=== PATIENT | female | born 1950 | race Caucasian/White ===

== ENCOUNTER → 2016-08-29 | Outpatient (CLI) | payer OTHER, MEDICAID | LOC: FIMAGING 11:03 | PROVIDERS: ATTEND Physician Assistant | DX: M17.0 Bilateral primary osteoarthritis of knee (principal); M25.561 Pain in right knee; M25.562 Pain in left knee ==

== ENCOUNTER 2017-01-25 05:58 | Inpatient (IN) | payer OTHER, MEDICAID ==
[2017-01-25] MEDS ORDERED: TRANEXAMIC ACID 3,000 MG in NS 50 ML IRR ONE (06:00)
[2017-01-25] MEDS ORDERED: ROPIVACAINE 0.2% 80 MG, EPINEPHrine 0.2 MG in BAG 0 ML IU ONE (06:00)
[2017-01-25] MEDS ORDERED: BUPIVACAINE 0.5% 30 ML SDV ONE (06:52)
[2017-01-25] MEDS ORDERED: TRANEXAMIC ACID 3,000 MG/50 ML BAG IRR ONE (06:56)
[2017-01-25] MEDS ORDERED: VANCOMYCIN 1 GM VIAL ONE ×2 (06:57)
--- NOTE | 2017-01-25 07:00 | PDHPUP ---
History & Physical Update H&P update statement: This history and physical update is based on an assessment of the patient which was completed after admission or registration (within 24 hours), but prior to the surgery/procedure. H&P update: H&P reviewed & patient examined, no change in patient's condition since H&P completed
--- NOTE | 2017-01-25 07:04 | PDANEPAE ---
ANE History of Present Illness h/o right knee OA for TKA today ANE Past Medical History - Cardiovascular History Hx Hypertension: No Hx Arrhythmias: No Hx Chest Pain: No Hx Coronary Artery / Peripheral Vascular Disease: No Hx CHF / Valvular Disease: No Hx Palpitations: No Cardiovascular History Comment: hx of pericarditis - Pulmonary History Hx COPD: No Hx Asthma/Reactive Airway Disease: No Hx Recent Upper Respiratory Infection: No Hx Oxygen in Use at Home: No Hx Sleep Apnea: Yes Sleep Apnea Screening Result - Last Documented: Positive Pulmonary History Comment: PATRICK uses CPAP -tolerate well. Breathing issues as a child due to allergies. - Neurologic History Hx Cerebrovascular Accident: No Hx Seizures: No Hx Dementia: No - Endocrine History Hx Diabetes: No Hypothyroid: Yes Obesity: yes Endocrine History Comment: hypothyroid - Renal History Hx Renal Disorders: No - Liver History Hx Hepatic Disorders: No - Neurological & Psychiatric Hx Hx Neurological and Psychiatric Disorders: Yes Neurological / Psychiatric History Comment: no current back/spine pain. - Cancer History Hx Cancer: No - Congenital Disorder History Hx Congenital Disorders: No - GI History Hx Gastrointestinal Disorders: Yes Gastrointestinal History Comment: Gluten - intolerant. - Other Health History Other Health History: OA bilat knees, R knee more sever, OA jaws. Immune system : multiple allergies to peanuts, corn, Gluten, preservatives. - Chronic Pain History Chronic Pain: Yes (R knee) - Surgical History Prior Surgeries: hysterectomy 1998. laparoscopy 1979. T.L. w/laparoscopy 1971 ANE Review of Systems Review of Systems: - Exercise capacity METS (RN): 3 METS ANE Patient History - Allergies Allergies/Adverse Reactions: aspirin Allergy (Verified 12/18/16 10:33) Hives latex Allergy (Verified 09/11/13 10:07) peanut Allergy (Verified 09/11/13 10:07) Penicillins Allergy (Verified 09/11/13 10:07) - Home Medications Home medications: home medication list seen and reviewed Home Medications: Thyroid,Pork [Dental Amalgam Processor Thyroid 120] 120 mg PO DAILY 09/11/13 [Last Taken Unknown] Cholecalciferol Vit D3 [Vitamin D3 (*)] 5,000 units PO DAILY 12/18/16 [Last Taken Unknown] Herbals/Supplements -Info Only 1 each PO DAILY 12/18/16 [Last Taken Unknown] Vitamin B Complex [B Complex] 1 each PO DAILY 12/18/16 [Last Taken Unknown] Acetaminophen Extra Strength 12/25/16 [Last Taken Unknown] - NPO status NPO Status: no food or drink >8 hours - Anes Hx Anes Hx: post operative nausea - Smoking Hx Smoking Status: Never smoked ANE Labs/Vital Signs - Vital Signs Height: 167.64 cm Weight: 103.419 kg ANE Physical Exam - Airway Neck exam: FROM Mallampati Score: Class 3 Mouth exam: small mouth opening - Pulmonary Pulmonary: no respiratory distress - Cardiovascular Cardiovascular: regular rate and rhythym - ASA Status ASA Status: III ANE Anesthesia Plan Anesthesia Plan: spinal Regional Anesthesia: single shot NB, adductor canal FNB
[2017-01-25] MEDS ORDERED: MIDAZOLAM 2 MG/2 ML VIAL IVP ONE (07:06)
[2017-01-25] MEDS ORDERED: LIDOCAINE 1% 2 ML INJ ONE (07:10)
[2017-01-25] MEDS ORDERED: PROPOFOL 200 MG/20 ML VIAL ONE ×3 (07:13→08:43)
[2017-01-25] MEDS ORDERED: LIDOCAINE 1% 2 ML INJ ID PRN (07:17)
[2017-01-25] MEDS ORDERED: LR 1,000 ML IV ONE (07:17)
[2017-01-25] MEDS ORDERED: LIDOCAINE 2% 5 ML SDV ONE (07:18)
[2017-01-25] MEDS ORDERED: fentaNYL 100 MCG/2 ML INJ ONE ×2 (08:15→10:15)
[2017-01-25] MEDS ORDERED: ceFAZolin 1 GM VIAL ONE ×2 (08:28)
[2017-01-25] MEDS ORDERED: LABETALOL HCL 5 MG/ML 20 ML MDV ONE (08:29)
[2017-01-25] MEDS ORDERED: LABETALOL HCL 50 MG/10 ML SYR IVP PRN (08:45)
[2017-01-25] MEDS ORDERED: NALOXONE HCL 0.4 MG/ML INJ IVP PRN ×2 (08:45→10:44)
[2017-01-25] MEDS ORDERED: ONDANSETRON 4 MG/2 ML VIAL IVP PRN ×2 (08:45→09:17)
[2017-01-25] MEDS ORDERED: ACETAMINOPHEN 500 MG TAB PO PRN ×2 (08:45→10:44)
[2017-01-25] MEDS ORDERED: ALBUTEROL 3 ML DEYVIAL IH PRN (08:45)
[2017-01-25] MEDS ORDERED: LR 500 ML IV PRN (08:45)
[2017-01-25] MEDS ORDERED: diphenhydrAMINE 25 MG CAP PO PRN (09:17)
[2017-01-25] MEDS ORDERED: PROMETHAZINE HCL 25 MG SUPPR PR PRN (09:17)
[2017-01-25] MEDS ORDERED: METOCLOPRAMIDE 10 MG/2 ML VIAL IVP PRN (09:17)
[2017-01-25] MEDS ORDERED: DIPHENOXYLATE/ATROPINE LOMOTIL 1 TAB PO PRN (09:17)
[2017-01-25] MEDS ORDERED: BISACODYL 10 MG SUPP PR PRN (09:17)
[2017-01-25] MEDS ORDERED: LACTULOSE 20 GM/30 ML UDCUP PO PRN (09:17)
[2017-01-25] MEDS ORDERED: ONDANSETRON DISINTEGRATING 4 MG TAB PO PRN (09:17)
[2017-01-25] MEDS ORDERED: TEMAZEPAM 15 MG CAP PO PRN (09:17)
[2017-01-25] MEDS ORDERED: MAGNESIUM HYDROXIDE 30 ML UDCUP PO PRN (09:17)
[2017-01-25] MEDS ORDERED: POLYETHYLENE GLYCOL 3350 17 GM PKT PO PRN (09:17)
--- NOTE | 2017-01-25 09:17 | POSTOPPROG ---
Post Op Note Date of Operation: 01/25/17 Surgeon: Kelly Chery Sewer: carlie smith Anesthesiologist: jose spear Anesthesia: IV Sedation, Local (Specify) (adductor canal), Spinal Pre-op Diagnosis: R knee OA Post-op Diagnosis: R knee OA Indication: failed conservative therapies Procedure: R TKA Inf/Abcess present in the surg proc area at time of surgery?: No EBL: Minimal
[2017-01-25] MEDS ORDERED: LR 1,000 ML IV SCH (09:30)
--- NOTE | 2017-01-25 09:33 | POSTANESTH ---
Post Anesthetic Evaluation Cardiovascular Status: Normal, Stable Respiratory Status: Normal, Stable Level of Consciousness/Mental Status: Can Participate in Eval Pain Control: Adequate, Prn Tx Ordered Nausea/Vomiting Control: Adequate, Prn Tx Ordered Complications Possibly Related to Anesthesia: None Noted
[2017-01-25] MEDS ORDERED: ONDANSETRON 4 MG/2 ML VIAL ONE (09:48)
[2017-01-25] MEDS: fentaNYL 100 MCG/2 ML INJ IVP PRN ×2 (10:15→10:33)
[2017-01-25] MEDS ORDERED: ceFAZolin 2 GM/DEXTROSE 100 ML IV ONE (10:44)
[2017-01-25] MEDS ORDERED: Herbals/Supplements -Info Only PO SCH (10:44)
[2017-01-25] MEDS ORDERED: FAMOTIDINE 20 MG TAB PO ONE (10:44)
[2017-01-25] MEDS ORDERED: DEXAMETHASONE 4 MG/ML VIAL IVP ONE (10:44)
[2017-01-25] MEDS ORDERED: ACETAMINOPHEN 325 MG TAB PO ONE (10:44)
[2017-01-25] MEDS ORDERED: HYDROmorphONE/DILAUDID 1 MG/ML INJ ONE ×2 (10:51→11:14)
[2017-01-25] MEDS: HYDROmorphONE/DILAUDID 1 MG/ML INJ IVP PRN ×4 (10:54→11:35)
[2017-01-25] MEDS ORDERED: PROMETHAZINE HCL 25 MG/ML INJ ONE (11:32)
[2017-01-25] MEDS: PROMETHAZINE HCL 25 MG/ML INJ IVP PRN ×2 (11:35→12:24)
[2017-01-25] MEDS ORDERED: THYROID 60 MG TAB PO SCH (13:45)
[2017-01-25] MEDS: CHOLECALCIFEROL VIT D3 1,000 UNITS TAB PO SCH (13:48)
[2017-01-25] MEDS: ACETAMINOPHEN 325 MG TAB PO SCH ×2 (13:48→17:53)
[2017-01-25] MEDS: VITAMIN B COMPLEX 1 EA CAP/TAB PO SCH (14:29)
[2017-01-25] MEDS: ceFAZolin 2 GM/DEXTROSE 100 ML IV SCH ×2 (15:26→21:38)
[2017-01-25] MEDS: oxyCODONE IR 5 MG TAB PO PRN ×3 (15:26→21:39)
[2017-01-25] MEDS ORDERED: WARFARIN SODIUM 5 MG TAB PO SCH (16:00)
[2017-01-25] MEDS: CYCLOBENZAPRINE 10 MG TAB PO PRN (17:54)
[2017-01-25] MEDS: FAMOTIDINE 20 MG TAB PO SCH (21:39)
[2017-01-25] MEDS: SENNOSIDES/DOCUSATE SODIUM TAB PO SCH (21:41)
[2017-01-26] MEDS: oxyCODONE IR 5 MG TAB PO PRN ×5 (00:21→14:49)
[2017-01-26] MEDS: ACETAMINOPHEN 325 MG TAB PO SCH ×3 (00:21→11:19)
[2017-01-26] MEDS: CYCLOBENZAPRINE 10 MG TAB PO PRN ×2 (04:16→11:19)
[2017-01-26 05:31] LABS: INR 1.1 (0.83-1.16); PROTIME(PATIENT) 14.1 SEC (12.0-15.0)
[2017-01-26] MEDS: VITAMIN B COMPLEX 1 EA CAP/TAB PO SCH (08:26)
[2017-01-26] MEDS: FAMOTIDINE 20 MG TAB PO SCH (08:26)
[2017-01-26] MEDS: SENNOSIDES/DOCUSATE SODIUM TAB PO SCH (08:26)
[2017-01-26] MEDS: CHOLECALCIFEROL VIT D3 1,000 UNITS TAB PO SCH (08:27)
[2017-01-26] MEDS ORDERED: THYROID 60 MG TAB PO SCH (09:00)
[2017-01-26] MEDS ORDERED: ENOXAPARIN 40 MG/0.4 ML SYR SC SCH (09:00)
[2017-01-26] MEDS ORDERED: [UNRECOGNIZED DRUG - OTHER] PO SCH (09:00)
[2017-01-26 11:48] VITALS: BP 156/73; PULSE 67; RESP 14; TEMP 98.8; O2SAT 97
--- NOTE | 2017-01-26 12:16 | SOAPPROG ---
SOAP Progress Note Assessment/Plan: Assessment: Patient is doing well POD 1 s/p R TKA Pain management: pain is well controlled on oral pain meds. VTE ppx: recommend lovenox x 4 days followed by coumadin daily for 3 weeks, cont TRISTAN and SCDs Anemia: level is expected initially postop. Asymptomatic. Continue to monitor D/c planning: d/c to home today pending release from PT Plan: 01/26/17 12:15 Objective: Vital Signs Temp Pulse Resp BP Pulse Ox 37.1 C 67 14 156/73 H 97 01/26/17 11:47 01/26/17 11:47 01/26/17 11:47 01/26/17 11:47 01/26/17 11:47 Laboratory Results 01/26/17 05:15 01/25/17 01/26/17 01/27/17 05:59 05:59 05:59 Intake Total 2330 Output Total 880 Balance 1450 PT 14.1 SEC (12.0-15.0) 01/26/17 05:15 INR 1.10 (0.83-1.16) 01/26/17 05:15 ICD10 Worksheet Patient Problems: Problems Problem Status Onset Osteoarthritis of right knee Acute - ICD10 Problem Qualifiers (1) Osteoarthritis of right knee Qualifiers: Osteoarthritis type: primary Qualified Code(s): M17.11 - Unilateral primary osteoarthritis, right knee
--- NOTE | 2017-01-27 17:06 | ASDISCHSUM ---
Discharge Information Plan Status:Home with No Needs Medically Cleared to Leave:01/26/2017 Discharge Date:01/26/2017 02:52 PM CM D/C Disposition:Home, Routine, Self-Care ADT D/C Disposition:Home, Routine, Self-Care Projected Discharge Date:01/26/2017 12:00 AM Transportation at D/C:Family Discharge Delay Reason: Follow-Up Date:01/26/2017 12:00 AM Discharge Slot: Final Diagnosis:R TKA Placement Information Patient Contact Information Contact Name:ONOFRE Relationship: Address:[address] Work Phone: City:[place] Alternate Phone: State/Zip Code:[place] [address] Email: Financial Information Financial Class: Primary Plan Desc:MEDICARE INPATIENT Primary Plan Number:[id number] Secondary Plan Desc:MEDICA[place] Secondary Plan Number:[id number] Assessment Information Intervention Information
--- NOTE | 2017-01-27 17:08 | ASMTCMCOM ---
CM Note CM Note Notes: Reviewed chart, spoke w/ Akua RN. Pt to discharge home independently w/ family support and no identified needs. PT/OT rec home vs home w/ 24 hr supervision and use of a front wheeled walker. Pt to f/u as directed. CM avail for any further issues or concerns. Date Signed: 01/26/2017 05:02 PM Electronically Signed By:Nataliia Gil
--- NOTE | 2017-01-28 09:29 | GOP ---
[f rep st] OPERATIVE REPORT DATE OF OPERATION: 01/25/2017 SURGEON: Rafi Chery MD STACKER AND SORTER OPERATOR: BG Carrera. ANESTHESIA: Spinal. PREOPERATIVE DIAGNOSIS: Right knee osteoarthritis. POSTOPERATIVE DIAGNOSIS: Right knee osteoarthritis. PROCEDURE PERFORMED: Right total knee arthroplasty. FINDINGS/PATHOLOGY: Severe tricompartmental osteoarthritis. ESTIMATED BLOOD LOSS: 30 cc. INDICATIONS: This is a 66-year-old female with severe and progressive pain and deformity of the right knee unresponsive to conservative care. Risks and benefits of the surgical intervention were explained in detail. DESCRIPTION OF PROCEDURE: The patient was brought to the operative room and placed on the table in the supine position. Spinal anesthesia was induced without difficulty. A pneumatic tourniquet was applied about the right proximal thigh, and the leg was prepped and draped in a sterile fashion. The leg march was applied. After exsanguination by elevation the tourniquet was inflated to 300 mm of mercury. Incision was made anterior medial from the tibial tuberosity to a point 2 cm proximal to the superior pole of the patella. Medial parapatellar arthrotomy was carried out from the superior pole of the patella and posteriorly in line with the fibers of the Type II VMO. The medial collateral ligament was elevated and the infrapatellar fat pad was resected. The patella was everted and the articular surface was excised. A 32 mm patellar button was placed. The distal femoral guide hole was drilled and the 6- degree alignment mark was placed. An 8 mm distal femoral cut was made without difficulty. Attention was turned to the tibia and a standard 9 mm cut based on the lateral tibial condyle was performed. The tibial articular surface was excised without difficulty. Attention was turned back to the femur and a size 3 Triathlon femoral cutting block was positioned. Anterior, posterior, and chamfer cuts were made, followed by the intercondylar box cut. The knee was extended and the remnants of the medial and lateral meniscus were excised. The posterior capsule was injected with ropivacaine, epinephrine and Toradol. A size 4 MIS mini-keel tibial tray was positioned. Trial reduction was then carried out. There was excellent range of motion, alignment, and stability using the 13 mm polyethylene. All trials were then removed. The joint was thoroughly irrigated and carefully dried. Two packages of cement and 2 grams of vancomycin were mixed in the vacuum mixer and placed on the fixation surfaces of all surfaces of the components. The components were implanted and all excess cement was thoroughly removed. The permanent 13 mm polyethylene X3 was placed without difficulty. The tourniquet was deflated and all bleeders were coagulated. The wound was thoroughly irrigated and closed using interrupted sutures of 2-0 Vicryl for the joint capsule. The subcu was closed with 3-0 Vicryl and the skin with 4-0 Monocryl. Dermabond and Steri-Strips were applied followed by a compressive dressing. The patient was then moved from the operating room to the recovery room in good condition, having tolerated the procedure well. /[id number]/MODL MTDD
== END 2017-01-26 14:52 | disposition home or self-care (01) | DRG 470 ==
LOC: F3N 05:58
PROVIDERS: ADMIT Orthopaedic Surgery; ATTEND Orthopaedic Surgery
PROC: 0SRC0J9 Replacement of Right Knee Joint with Synthetic Substitute, Cemented, Open Approach (ICD-10-PCS; principal; 2017-01-25 09:15)
DX: M17.11 Unilateral primary osteoarthritis, right knee (principal); G47.33 Obstructive sleep apnea (adult) (pediatric); E03.9 Hypothyroidism, unspecified; Z79.01 Long term (current) use of anticoagulants
CPT/HCPCS: 97116-GP; 97161-GP; 97165-GO; C1713; G8978-GP-CK; G8979-GP-CI; G8980-GP-CI; G8987-GO-CJ; G8988-GO-CI; J0171; J0690; J1170; J1650; J2250; J2405; J2550; J2704; J2795; J3010; J3370; J3490

== ENCOUNTER 2018-08-11 08:23 | Emergency (ER) | payer MEDICAID, OTHER ==
[2018-08-11] MEDS ORDERED: NS 1,000 ML IV ONE (08:46)
--- NOTE | 2018-08-11 08:50 | EDPHY ---
H & P Stated Complaint: umbilical swelling and pain since saturday Time Seen by Provider: 08/11/18 08:41 HPI/ROS: CHIEF COMPLAINT: Umbilical pain HISTORY OF PRESENT ILLNESS: The patient is a 67-year-old female with a history of laparoscopic tubal ligation 40 years ago followed by laparoscopic exploratory surgery for pelvic pain as well as hysterectomy several years later. Noticed a lump in some pain just below her umbilicus on Saturday. The pain is continued throughout the weekend. She has felt nauseous and has not felt like eating. She has continued to have bowel movements. No fever. No history of hernias. Severity: Moderate Modifying factors: Worsened by palpation REVIEW OF SYSTEMS: Constitutional: denies: chills, fever, recent illness, recent injury EENTM: denies: blurred vision, double vision, nose congestion Respiratory: denies: cough, shortness of breath Cardiac: denies: chest pain, irregular heart rate, lightheadedness, palpitations Gastrointestinal/Abdominal: denies: abdominal pain, diarrhea, nausea, vomiting, blood streaked stools Genitourinary: denies: dysuria, frequency, hematuria, pain Musculoskeletal: denies: joint pain, muscle pain Skin: denies: lesions, rash, jaundice, bruising Neurological: denies: headache, numbness, paresthesia, tingling, dizziness, weakness Hematologic/Lymphatic: denies: blood clots, easy bleeding, easy bruising Immunologic/allergic: denies: HIV/AIDS, transplant 10 systems reviewed and negative except as noted EXAM: GENERAL: Well-appearing, well-nourished and in no acute distress. HEAD: Atraumatic, normocephalic. EYES: Pupils equal round and reactive to light, extraocular movements intact, sclera anicteric, conjunctiva are normal. ENT: TMs normal, nares patent, oropharynx clear without exudates. Moist mucous membranes. NECK: Normal range of motion, supple without lymphadenopathy or JVD. LUNGS: Breath sounds clear to auscultation bilaterally and equal. No wheezes rales or rhonchi. HEART: Regular rate and rhythm without murmurs, rubs or gallops. ABDOMEN: Palpable mass just below umbilicus, tender. Unable to reduce but the bedside., normoactive bowel sounds. No guarding, no rebound. BACK: No CVA tenderness, no spinal tenderness, step-offs or deformities EXTREMITIES: Normal range of motion, no pitting or edema. No clubbing or cyanosis. NEUROLOGICAL: Cranial nerves II through XII grossly intact. Normal speech, normal gait. 5/5 strength, normal movement in all extremities, normal sensation , normal reflexes PSYCH: Normal mood, normal affect. SKIN: Warm, dry, normal turgor, no visible rashes or lesions. Source: Patient Exam Limitations: No limitations - Personal History Current Tetanus Diphtheria and Acellular Pertussis (TDAP): Yes - Medical/Surgical History Hx Asthma: Yes Hx Chronic Respiratory Disease: No Hx Diabetes: No Hx Cardiac Disease: No Hx Renal Disease: No Hx Cirrhosis: No Hx Alcoholism: No Hx HIV/AIDS: No Hx Splenectomy or Spleen Trauma: No Other PMH: Shingles. hysterectomy knee surg - Family History Significant Family History: No pertinent family hx - Social History Smoking Status: Never smoked Alcohol Use: None Constitutional: Initial Vital Signs Temperature (C) 36.7 C 08/11/18 08:28 Heart Rate 84 08/11/18 08:28 Respiratory Rate 18 08/11/18 08:28 Blood Pressure 190/94 H 08/11/18 08:28 O2 Sat (%) 95 08/11/18 08:28 O2 Delivery Mode Room Air Allergies/Adverse Reactions: aspirin Allergy (Verified 08/11/18 08:26) Hives latex Allergy (Verified 08/11/18 08:26) peanut Allergy (Verified 08/11/18 08:26) Penicillins Allergy (Verified 08/11/18 08:26) Home Medications: Medication Instructions Recorded Thyroid,Pork [Infrastructure Project Manager Thyroid] 120 mg PO DAILY 09/11/13 Cephalexin [Keflex] 500 mg PO TID #21 cap 08/11/18 Medical Decision Making - Diagnostics Imaging Results: Imaging Impressions Abdomen CT 08/11/18 08:47 Impression: 1. Fat-containing umbilical hernia measuring 5.4 cm with internal fat stranding and subjacent omental stranding, likely representing omental infarction or inflammation. 2. Left lower lobe nodule measuring 2.2 x 1.5 cm, new since 2007. This may represent rounded atelectasis. However, would consider PET/CT scan to exclude hypermetabolic mass. 3. Fatty liver. Findings and recommendations discussed with KACY MCLAUGHLIN at 1012 hour, 2018. Imaging: Discussed imaging studies w/ call center coordinator Radiologist ED Course/Re-evaluation: Patient is reassured by the CT findings. She still has a tender lump that I am unable to reduce. Will consult surgery. She also appears to have a mild UTI. Will start antibiotics. 10:45 a.m. I spoke with Dr. Walker. He states that he will admit and repair the hernia if it is painful and bothering the patient. I spoke with the patient who still does have some discomfort but she is very scared of having surgery and declines repair at this time. She states that she can tolerate the symptoms.. She will follow up with Dr. Walker as an outpatient. Dr. Walker agrees with this plan. We discussed indications for returning. We did discuss her urinalysis. She states that she has had some unusual smelling urine and would like to take the antibiotics. Differential Diagnosis: Partial list of the Differential diagnosis considered include but were not limited to; omental hernia, umbilical hernia, surgical hernia and although unlikely based on the history and physical exam, I also considered obstruction, ischemia, volvulus, incarceration. - Data Points Laboratory Results: Laboratory Results 08/11/18 09:00 08/11/18 09:00 08/11/18 08/11/18 08/11/18 09:50 09:05 09:00 WBC RBC Hgb POC Hgb 16.3 gm/dL gm/dL (12.6-16.3) Hct POC Hct 48 % H % (38-47) MCV MCH MCHC RDW Plt Count MPV Neut % (Auto) Lymph % (Auto) [place] % (Auto) Eos % (Auto) Baso % (Auto) Nucleat RBC Rel Count Absolute Neuts (auto) Absolute Lymphs (auto) Absolute Monos (auto) Absolute Eos (auto) Absolute Basos (auto) Absolute Nucleated RBC Immature Gran % Immature Gran # POC Sodium 143 mEq/L mEq/L (135-145) Sodium 140 mEq/L mEq/L (135-145) POC Potassium 3.9 mEq/L mEq/L (3.3-5.0) Potassium 4.3 mEq/L mEq/L (3.5-5.2) POC Chloride 107 mEq/L mEq/L (97-110) Chloride 108 mEq/L mEq/L (97-110) Carbon Dioxide 21 mEq/l L mEq/l (22-31) POC Total CO2 21 mEq/L L mEq/L (22-31) Anion Gap 11 mEq/L mEq/L (6-14) POC BUN 13 mg/dL mg/dL (7-23) BUN 14 mg/dL mg/dL (7-23) Creatinine 1.0 mg/dL mg/dL (0.6-1.0) POC Creatinine 0.9 mg/dL mg/dL (0.6-1.0) Estimated GFR 55 Glucose 111 mg/dL H mg/dL (70-100) POC Glucose 116 mg/dL H mg/dL (70-100) Calcium 9.7 mg/dL mg/dL (8.5-10.4) Total Bilirubin 1.0 mg/dL mg/dL (0.1-1.4) Conjugated Bilirubin 0.4 mg/dL mg/dL (0.0-0.5) Unconjugated Bilirubin 0.6 mg/dL mg/dL (0.0-1.1) AST 47 IU/L H IU/L (14-46) ALT 49 IU/L IU/L (9-52) Alkaline Phosphatase 69 IU/L IU/L (38-126) Total Protein 8.0 g/dL g/dL (6.3-8.2) Albumin 4.8 g/dL g/dL (3.5-5.0) Lipase 102 IU/L IU/L (23-300) Urine Color YELLOW Urine Appearance CLEAR Urine pH 7.0 (5.0-7.5) Ur Specific [place] 1.023 (1.002-1.030) Urine Protein NEGATIVE (NEGATIVE) Urine Ketones NEGATIVE (NEGATIVE) Urine Blood NEGATIVE (NEGATIVE) Urine Nitrate POSITIVE H (NEGATIVE) Urine Bilirubin NEGATIVE (NEGATIVE) Urine Urobilinogen NEGATIVE EU EU (0.2-1.0) Ur Leukocyte Esterase TRACE H (NEGATIVE) Urine RBC 1-3 /hpf /hpf (0-3) Urine WBC 5-10 /hpf H /hpf (0-3) Ur Epithelial Cells TRACE /lpf /lpf (NONE-1+) Urine Bacteria 1+ /hpf H /hpf (NONE SEEN) Urine Mucus TRACE /lpf /lpf (NONE-1+) Urine Glucose NEGATIVE (NEGATIVE) 08/11/18 09:00 WBC 8.19 10^3/uL 10^3/uL (3.80-9.50) RBC 4.98 10^6/uL 10^6/uL (4.18-5.33) Hgb 15.8 g/dL g/dL (12.6-16.3) POC Hgb Hct 46.8 % % (38.0-47.0) POC Hct MCV 94.0 fL fL (81.5-99.8) MCH 31.7 pg pg (27.9-34.1) MCHC 33.8 g/dL g/dL (32.4-36.7) RDW 12.2 % % (11.5-15.2) Plt Count 282 10^3/uL 10^3/uL (150-400) MPV 9.7 fL fL (8.7-11.7) Neut % (Auto) 60.6 % % (39.3-74.2) Lymph % (Auto) 26.7 % % (15.0-45.0) [place] % (Auto) 9.5 % % (4.5-13.0) Eos % (Auto) 1.8 % % (0.6-7.6) Baso % (Auto) 1.2 % % (0.3-1.7) Nucleat RBC Rel Count 0.0 % % (0.0-0.2) Absolute Neuts (auto) 4.95 10^3/uL 10^3/uL (1.70-6.50) Absolute Lymphs (auto) 2.19 10^3/uL 10^3/uL (1.00-3.00) Absolute Monos (auto) 0.78 10^3/uL 10^3/uL (0.30-0.80) Absolute Eos (auto) 0.15 10^3/uL 10^3/uL (0.03-0.40) Absolute Basos (auto) 0.10 10^3/uL 10^3/uL (0.02-0.10) Absolute Nucleated RBC 0.00 10^3/uL 10^3/uL (0-0.01) Immature Gran % 0.2 % % (0.0-1.1) Immature Gran # 0.02 10^3/uL 10^3/uL (0.00-0.10) POC Sodium Sodium POC Potassium Potassium POC Chloride Chloride Carbon Dioxide POC Total CO2 Anion Gap POC BUN BUN Creatinine POC Creatinine Estimated GFR Glucose POC Glucose Calcium Total Bilirubin Conjugated Bilirubin Unconjugated Bilirubin AST ALT Alkaline Phosphatase Total Protein Albumin Lipase Urine Color Urine Appearance Urine pH Ur Specific [place] Urine Protein Urine Ketones Urine Blood Urine Nitrate Urine Bilirubin Urine Urobilinogen Ur Leukocyte Esterase Urine RBC Urine WBC Ur Epithelial Cells Urine Bacteria Urine Mucus Urine Glucose Medications Given: Discontinued Medications Sodium Chloride (Ns) 1,000 mls @ 0 mls/hr IV EDNOW ONE; Wide Open PRN Reason: Protocol Stop: 08/11/18 08:47 Last Admin: 08/11/18 09:04 Dose: 1,000 mls Ceftriaxone Sodium/Dextrose (Rocephin 1 Gm (Premix)) 50 mls @ 100 mls/hr IV EDNOW ONE PRN Reason: Protocol Stop: 08/11/18 11:04 Last Admin: 08/11/18 10:46 Dose: 50 mls Point of Care Test Results: Chemistry 08/11/18 09:05 POC Sodium 143 mEq/L mEq/L (135-145) POC Potassium 3.9 mEq/L mEq/L (3.3-5.0) POC Chloride 107 mEq/L mEq/L (97-110) POC Total CO2 21 mEq/L L mEq/L (22-31) POC BUN 13 mg/dL mg/dL (7-23) POC Creatinine 0.9 mg/dL mg/dL (0.6-1.0) POC Glucose 116 mg/dL H mg/dL (70-100) ISTAT H&H 08/11/18 09:05 POC Hgb 16.3 gm/dL gm/dL (12.6-16.3) POC Hct 48 % H % (38-47) Departure - Departure Disposition: Home, Routine, Self-Care Clinical Impression: Herniation through surgical site Urinary tract infection Qualifiers: Urinary tract infection type: acute cystitis Hematuria presence: without hematuria Qualified Code(s): N30.00 - Acute cystitis without hematuria Condition: Fair Instructions: Urinary Tract Infection in Women (ED), Ventral Hernia Repair (DC) Referrals: Karin Warner PA [Primary Care Provider] - As per Instructions Mike Walker MD [Medical Doctor] - 2-3 days, call for appt. Prescriptions: Cephalexin [Keflex] 500 mg PO TID #21 cap
[2018-08-11 09:10] LABS: PLATELET COUNT 282 10^3/uL (150-400)
[2018-08-11] MEDS ORDERED: IOPAMIDOL (ISOVUE-300) 100 ML BTL ONE (09:15)
[2018-08-11 11:02] VITALS: BP 149/78
== END 2018-08-11 11:06 | disposition home or self-care (01) ==
DX: K43.2 Incisional hernia without obstruction or gangrene (principal); N30.00 Acute cystitis without hematuria; E03.9 Hypothyroidism, unspecified; E86.9 Volume depletion, unspecified
CPT/HCPCS: 74177; 96361; 96365; 99283; J0696; Q9967; 82435-PO; 82565-PO; 82947-PO; 84132-PO; 84295-PO; 84520-PO; 85014-ER

== ENCOUNTER 2018-09-12 09:01 | Day surgery (SDC) | payer OTHER ==
[2018-09-12] MEDS ORDERED: ceFAZolin 2 GM/DEXTROSE 100 ML IV ONE (09:13)
[2018-09-12] MEDS ORDERED: BUPIVACAINE 0.5% 30 ML SDV ONE (09:14)
[2018-09-12] MEDS ORDERED: LR 1,000 ML IV ONE (09:41)
[2018-09-12] MEDS ORDERED: MIDAZOLAM 2 MG/2 ML VIAL IVP ONE (09:58)
[2018-09-12] MEDS ORDERED: MIDAZOLAM 2 MG/2 ML VIAL ONE (09:58)
[2018-09-12] MEDS ORDERED: fentaNYL 100 MCG/2 ML INJ ONE ×3 (10:00→11:49)
[2018-09-12] MEDS ORDERED: PROPOFOL 200 MG/20 ML VIAL ONE ×2 (10:01)
[2018-09-12] MEDS ORDERED: ROCURONIUM 50 MG/5 ML VIAL ONE (10:03)
[2018-09-12] MEDS ORDERED: LIDOCAINE 2% 2 ML INJ ONE ×2 (10:04)
[2018-09-12] MEDS ORDERED: DEXAMETHASONE 4 MG/ML VIAL ONE (10:18)
[2018-09-12] MEDS ORDERED: KETOROLAC 30 MG/1 ML SDV ONE (10:18)
[2018-09-12] MEDS ORDERED: ONDANSETRON 4 MG/2 ML VIAL ONE ×2 (10:18→13:28)
[2018-09-12] MEDS ORDERED: SUGAMMADEX SODIUM 200 MG/2 ML VIAL IVP ONE (10:18)
[2018-09-12] MEDS ORDERED: PROMETHAZINE HCL 25 MG/ML INJ IVP PRN (10:30)
[2018-09-12] MEDS ORDERED: ALBUTEROL 3 ML DEYVIAL IH PRN (10:30)
[2018-09-12] MEDS ORDERED: HYDROCODONE/APAP 5/325 TAB PO PRN (10:30)
[2018-09-12] MEDS ORDERED: ONDANSETRON 4 MG/2 ML VIAL IVP PRN (10:30)
[2018-09-12] MEDS ORDERED: LR 500 ML IV PRN (10:30)
[2018-09-12] MEDS ORDERED: NALOXONE HCL 0.4 MG/ML INJ IVP PRN ×2 (10:30)
[2018-09-12] MEDS ORDERED: oxyCODONE IR 5 MG TAB PO PRN (10:30)
[2018-09-12] MEDS ORDERED: ACETAMINOPHEN 500 MG TAB PO PRN (10:30)
--- NOTE | 2018-09-12 10:30 | PDANEPAE ---
ANE History of Present Illness umbilical hernia ANE Past Medical History - Cardiovascular History Hx Hypertension: No Hx Arrhythmias: No Hx Chest Pain: No Hx Coronary Artery / Peripheral Vascular Disease: No Hx CHF / Valvular Disease: No Hx Palpitations: No Cardiovascular History Comment: hx of pericarditis 2007 - Pulmonary History Hx COPD: No Hx Asthma/Reactive Airway Disease: No Hx Recent Upper Respiratory Infection: No Hx Oxygen in Use at Home: No Hx Sleep Apnea: Yes Sleep Apnea Screening Result - Last Documented: Positive Pulmonary History Comment: PATRICK uses CPAP -tolerate well. Breathing issues as a child due to allergies. - Neurologic History Hx Cerebrovascular Accident: No Hx Seizures: No Hx Dementia: No - Endocrine History Hx Diabetes: No Obesity: yes, severe Endocrine History Comment: hypothyroid - Renal History Hx Renal Disorders: No - Liver History Hx Hepatic Disorders: No - Neurological & Psychiatric Hx Hx Neurological and Psychiatric Disorders: Yes Neurological / Psychiatric History Comment: no current back/spine pain. - Cancer History Hx Cancer: No - Congenital Disorder History Hx Congenital Disorders: No - GI History Hx Gastrointestinal Disorders: Yes Gastrointestinal History Comment: Gluten - intolerant. - Other Health History Other Health History: OA bilat knees, R knee, OA jaws. Immune system: multiple allergies to peanuts, corn, Gluten, preservatives. - Chronic Pain History Chronic Pain: No (BACK & KNEE) - Surgical History Prior Surgeries: R TKA 2017. hysterectomy 1998. laparoscopy 1978. T.L. w/ laparoscopy 1971 ANE Review of Systems Review of systems is: negative Review of Systems: - Exercise capacity METS (RN): 4 METS ANE Patient History - Allergies Allergies/Adverse Reactions: aspirin Allergy (Verified 08/11/18 08:26) Hives latex Allergy (Verified 09/10/18 15:32) SOB IF INHALED, BURNING SKIN ON CONTACT peanut Allergy (Verified 08/11/18 08:26) Penicillins Allergy (Verified 08/11/18 08:26) - Home Medications Home medications: home medication list seen and reviewed Home Medications: ACETAMINOPHEN 09/10/18 [Last Taken 09/11/18 22:00] Levothyroxine 09/10/18 [Last Taken 09/11/18 08:00] Probiotic 09/10/18 [Last Taken 09/09/18] - NPO status NPO Since - Liquids (Date): 09/11/18 NPO Since - Liquids (Time): 21:00 NPO Since - Solids (Date): 09/11/18 NPO Since - Solids (Time): 20:00 - Anes Hx Anes Hx: no prior problems - Smoking Hx Smoking Status: Never smoked - Family Anes Hx Family Hx Anesthesia Complications: NEG ANE Labs/Vital Signs - Vital Signs Blood Pressure: 174/95 Heart Rate: 81 Respiratory Rate: 16 O2 Sat (%): 95 Height: 167.64 cm Weight: 117.934 kg ANE Physical Exam - Airway Neck exam: decreased ROM Mallampati Score: Class 3 Mouth exam: small mouth opening - Pulmonary Pulmonary: no respiratory distress - Cardiovascular Cardiovascular: regular rate and rhythym - ASA Status ASA Status: III ANE Anesthesia Plan Anesthesia Plan: general endotracheal anesthesia Specialized Airway: video laryngoscope Urgent/Emergent Case: Krysta virk completed preop but documented later for safe timely pt care
--- NOTE | 2018-09-12 10:30 | POSTANESTH ---
Post Anesthetic Evaluation Cardiovascular Status: Normal, Stable Respiratory Status: Normal, Stable Level of Consciousness/Mental Status: Can Participate in Eval, Mildly Sleepy, Arousable Pain Control: Adequate, Prn Tx Ordered Nausea/Vomiting Control: Adequate, Prn Tx Ordered Complications Possibly Related to Anesthesia: None Noted
--- NOTE | 2018-09-12 11:17 | POSTOPPROG ---
Post Op Note Date of Operation: 09/12/18 Surgeon: Mike Walker Care Worker: Luisana Anesthesiologist: Haseeb Anesthesia: GET(General Endotracheal) Pre-op Diagnosis: Incarcerated umbilical hernia Post-op Diagnosis: same Indication: same Procedure: Open umbilical hernia repair without mesh Findings: Moderately sized incarcerated umbilical hernia sac. No bowel in sac. Inf/Abcess present in the surg proc area at time of surgery?: No Depth: Organ Space EBL: Minimal
[2018-09-12] MEDS: fentaNYL 100 MCG/2 ML INJ IVP PRN ×2 (11:51→12:00)
[2018-09-12] MEDS ORDERED: HYDROmorphONE/DILAUDID 1 MG/ML INJ ONE (12:09)
[2018-09-12] MEDS: HYDROmorphONE/DILAUDID 1 MG/ML INJ IVP PRN ×3 (12:10→12:44)
[2018-09-12] MEDS ORDERED: METOCLOPRAMIDE 10 MG/2 ML VIAL IVP ONE (13:58)
[2018-09-12] MEDS ORDERED: METOCLOPRAMIDE 10 MG/2 ML VIAL ONE (14:00)
[2018-09-12 14:13] VITALS: BP 155/95
[2018-09-12] MEDS ORDERED: PROMETHAZINE HCL 25 MG/ML INJ ONE (14:34)
[2018-09-12] MEDS ORDERED: PROMETHAZINE HCL 25 MG/ML INJ IVP ONE (14:38)
--- NOTE | 2018-09-15 03:49 | GOP ---
[f rep st] OPERATIVE REPORT DATE OF OPERATION: SURGEON: Mike Walker MD RESERVATION MANAGER: Kimberlee Lieberman NP PREOPERATIVE DIAGNOSIS: Incarcerated umbilical hernia. POSTOPERATIVE DIAGNOSIS: Incarcerated umbilical hernia. PROCEDURE PERFORMED: Open repair of incarcerated umbilical hernia. Partial omentectomy. FINDINGS: The patient was found to have a 3 cm defect with incarcerated omental tissue. DESCRIPTION OF PROCEDURE: The patient was taken to the operating room where she received satisfactor y general endotracheal anesthesia. She was placed in a supine position, prepped and draped in the [facility] sterile fashion. A transverse incision was made over the palpable mass in the infraumbilical are a. Dissection was carried down through subcutaneous tissue and the mass was dissected free from surr ounding subcutaneous tissue off the back of the umbilical skin. The hernia sac was opened at the fasc ial level and its contents were reduced. A portion of the omentum was removed with clamps and 3-0 Vi cryl ties. The remainder of the omentum was reduced. Hemostasis was assured. The patient did not wa nt any mesh used and the wound was closed transversely in a 2-layer [id number] fashion with inte rrupted 0 Ethibond mattress sutures. The wound was infiltrated with 0.5% Marcaine. Subcu was closed with 3-0 Vicryl and the skin with a 4-0 Monocryl subcuticular stitch. She tolerated the procedure we ll and was taken to the recovery room in good condition. There were no complications. /[id number]/MODL
== END 2018-09-12 15:59 | disposition home or self-care (01) ==
LOC: FSGY 09:01
PROVIDERS: ATTEND Surgery
PROC: 0DBU0ZZ Excision of Omentum, Open Approach (ICD-10-PCS; principal; 2018-09-12 11:15)
PROC: 0WQF0ZZ Repair Abdominal Wall, Open Approach (ICD-10-PCS; principal; 2018-09-12 11:15)
DX: K42.0 Umbilical hernia with obstruction, without gangrene (principal); R91.1 Solitary pulmonary nodule; E03.9 Hypothyroidism, unspecified; F32.9 Major depressive disorder, single episode, unspecified; Z87.820 Personal history of traumatic brain injury; Z96.651 Presence of right artificial knee joint
CPT/HCPCS: J0690; J1100; J1170; J1885; J2250; J2405; J2550; J2704; J2765; J3010

== ENCOUNTER → 2018-10-23 | Outpatient (CLI) | payer OTHER | LOC: FIMAGING 09:35 ==